=== PATIENT | male | born 1980 | race Caucasian/White ===

== ENCOUNTER 2019-04-03 21:12 | Inpatient (IN) | payer BC ==
[~2019-04-03] VITALS: Ht 182.9 cm; Wt 95.3 kg
[2019-04-03 22:30] VITALS: BP 115/70
[2019-04-03] MEDS ORDERED: CLOM50TA18 PO (22:54)
[2019-04-03] MEDS ORDERED: ELVI1TAB3 PO (22:54)
--- NOTE | 2019-04-03 23:00 | NUR ---
CIGAR BANDERLEARNING COACH NOTES Patient is a direct admit from [facility], admitted for sepsis/pancolitis. Patient is alert, oriented x 4, able to make needs known. Breathing even and unlabored, not in any distress, on room air. Patient is ambulatory with steady gait. Tele monitor in place, sinus tach 108. Peripheral IV of NS 1L started at 125mL/hr as ordered. Skin assessment done- no skin issues noted. Oriented to call light- placed within easy reach. Bed in lowest, locked position. Will continue to monitor accordingly
[2019-04-03] MEDS ORDERED: ACETAMINOPHEN 325 MG TABLET PO PRN (23:30)
[2019-04-03] MEDS ORDERED: ONDANSETRON HCL/PF 4 MG/2 ML VIAL IVP PRN (23:30)
[2019-04-03] MEDS ORDERED: MAGNESIUM HYDROXIDE 30 ML UDC PO PRN (23:30)
[2019-04-03] MEDS ORDERED: Z GUARD REMEDY 2 OZ OINT TP PRN (23:30)
[2019-04-03] MEDS ORDERED: ZOLPIDEM TARTRATE 5 MG TABLET PO PRN (23:30)
[2019-04-03] MEDS ORDERED: MAG HYDROX/AL HYDROX/SIMETH 30 ML UDC PO PRN (23:30)
--- NOTE | 2019-04-03 23:45 | NUR ---
RN NOTES currently at bedside. Informed him that as per MD order to continue home medication Genvoya but [facility] pharmacy does not supply it here. Informed him to bring the medication in the morning.
[2019-04-03] MEDS: MORPHINE SULFATE INJ 2 MG/ML DISP.SYRIN IV PRN (23:55)
--- NOTE | 2019-04-03 23:55 | NUR ---
RN NOTES Patient complaining of abdominal and flank pain, 06/12. Morphine 2mg IV given as ordered. Will continue to monitor
[2019-04-03] MEDS: IV NS 0.9% 1,000 ML IV PRN (23:58)
[2019-04-04] LABS: BASOPHILS % (AUTO) 0.1 % (0.0-2.0); EOSINOPHILS % (AUTO) 0.2 % (0.0-6.0); HEMATOCRIT 43 % (39-51); LYMPHOCYTES # (AUTO) 0.8 /CMM (0.8-4.8); LYMPHOCYTES % (AUTO) 11.5 % (20.0-44.0); MEAN CORPUSCULAR HGB CONC 35 g/dl (31.0-36.0); MEAN CORPUSCULAR VOLUME 87 fL (80-96); MONOCYTES % (AUTO) 15.7 % (2.0-12.0); NEUTROPHILS # (AUTO) 4.8 /CMM (1.8-8.9); NEUTROPHILS % (AUTO) 72.5 % (43.0-81.0); PLATELET COUNT (AUTO) 126 /CMM (150-450); RED BLOOD CELL COUNT(AUTO) 4.96 MIL/uL (4.5-6.0); WHITE BLOOD COUNT (AUTO) 6.6 K/uL (4.3-11.0)
[2019-04-04 00:15] LABS: BASOPHILS % (MANUAL) 1 % (0.0-2.0); LYMPHOCYTES % (MANUAL) 14 % (16-48); MONOCYTES % (MANUAL) 12 % (0-11.0); NEUTROPHILS % (MANUAL) 73 (42-76)
[2019-04-04 00:22] LABS: ALBUMIN 2.2 g/dL (3.4-5.0); BILIRUBIN,TOTAL 0.4 mg/dL (0.2-1.0); CALCIUM, SERUM 7.9 mg/dL (8.5-10.1); CREATININE 2.3 mg/dL (0.6-1.3); MAGNESIUM 1.9 mg/dL (1.8-2.4); PHOSPHORUS 2.6 mg/dL (2.5-4.9); POTASSIUM 3.5 mmol/L (3.5-5.1)
--- NOTE | 2019-04-04 02:20 | NUR ---
RN NOTES Stool sample collected. Sent to lab for C. Diff testing
[2019-04-04] MEDS: HYDROCODONE/APAP 5/325MG 1 EACH TABLET PO PRN (02:24)
[2019-04-04 04:00] VITALS: BP 111/60
[2019-04-04 06:37] LABS: EOSINOPHILS % (AUTO) 0.2 % (0.0-6.0); HEMATOCRIT 40 % (39-51); LYMPHOCYTES # (AUTO) 0.8 /CMM (0.8-4.8); LYMPHOCYTES % (AUTO) 12.2 % (20.0-44.0); MEAN CORPUSCULAR HGB CONC 35 g/dl (31.0-36.0); MEAN CORPUSCULAR VOLUME 87 fL (80-96); MONOCYTES # (AUTO) 1.2 /CMM (0.1-1.30); MONOCYTES % (AUTO) 18.1 % (2.0-12.0); NEUTROPHILS # (AUTO) 4.6 /CMM (1.8-8.9); NEUTROPHILS % (AUTO) 69.5 % (43.0-81.0); PLATELET COUNT (AUTO) 122 /CMM (150-450); RED BLOOD CELL COUNT(AUTO) 4.61 MIL/uL (4.5-6.0); WHITE BLOOD COUNT (AUTO) 6.6 K/uL (4.3-11.0)
--- NOTE | 2019-04-04 06:39 | NUR ---
TEL RN CLOSING NOTES Patient still sleeping in bed, easily arousable. Breathing even and unlabored. Not in any distress. Peripheral IV infusing at 125mL/hr. Tele monitor in place- sinus rhythm 89. No acute changes overnight. All needs attended and anticipated. Will endorse LILA to oncoming RN
[2019-04-04 06:41] LABS: CALCIUM, SERUM 7.6 mg/dL (8.5-10.1); MAGNESIUM 2.1 mg/dL (1.8-2.4); PHOSPHORUS 2.6 mg/dL (2.5-4.9); POTASSIUM 3.6 mmol/L (3.5-5.1)
[2019-04-04] MEDS: IV NS 0.9% 1,000 ML IV PRN ×2 (07:00→15:50)
[2019-04-04] MEDS: MORPHINE SULFATE INJ 2 MG/ML DISP.SYRIN IV PRN ×2 (07:07→21:53)
--- NOTE | 2019-04-04 07:08 | NUR ---
RN NOTES Patient complaining of abdominal and flank pain, 07/13. Morphine 2mg IV given as ordered.
[2019-04-04 07:23] LABS: THYROID STIMULATING HORMONE 0.877 uIU/mL (0.358-3.74)
[2019-04-04 07:52] LABS: BAND % (MANUAL) 2 % (0.0-5.0); LYMPHOCYTES % (MANUAL) 19 % (16-48); MONOCYTES % (MANUAL) 23 % (0-11.0); NEUTROPHILS % (MANUAL) 56 (42-76)
[2019-04-04 08:00] VITALS: BP 128/80
--- NOTE | 2019-04-04 08:00 | NUR ---
CAREGIVER ASSISTED LIVING NOTE RECEIVED PATIENT IN BED , ALERT , ORIENTED X3 , ON TELE MONITOR SR , ,ON RA NO SOB NOTED AT THIS TIME , ON IVF ORDERED LAC HL INTACT , NO S\S INFECTION NOTED , BED IN LOWEST AND LOCKED POSITION , CALL LIGHT WITHIN REACH ,WILL CONT TO MONITOR
--- NOTE | 2019-04-04 10:48 | NUR ---
SCHOOL LUNCH MANAGER NOTE ASSISTED TO BR ,ABLE TO HAVE BM, NOTED LOOSE STOOL WITH BLOOD , WILL REPOT TO MD , KEEP CLEAN DRY , ALSO PER PHARMACO PATIENT HOME MEDS NOT AVAILABLE IN HOSPITAL, RECOMMENDED TO BRING IT ,PATIENT STATED THAT FAMILY WILL BRING SOON , WILL F\U
[2019-04-04 12:00] VITALS: BP 130/82
--- NOTE | 2019-04-04 13:35 | NUR ---
CLEANING PORTER NOTE SAMIA DNP AT BEDSIDE , AWARE THAT STILL HAS BLOODY LIQUID STOOL, OK TO CONT IVF AND ADVANCE DIET TO FULL LIQUID DIET
--- NOTE | 2019-04-04 15:00 | NUR ---
ms rn note cont on ivf as ordered, not in distress
[2019-04-04 16:00] VITALS: BP 119/76
[2019-04-04] MEDS: METRONIDAZOLE 500MG/ NS 100ML 500 MG in PREMIX 1 EA IV SCH ×2 (17:03→23:41)
--- NOTE | 2019-04-04 18:46 | NUR ---
MS RN NOTE HAVING DINNER , ALL NEEDS ATTENDED ON IVF ORDERED , TOLERATED FULL LIQUID DIET WELL ,NO NAUSEA OR VOMITING NOTED , FAMILY AT BEDSIDE , WILL CONT TO MONITOR CLOSELY
[2019-04-04 20:00] VITALS: BP 118/74
--- NOTE | 2019-04-04 20:12 | NUR ---
MS RN OPENING NOTE: RECIEVED PT IN NO ACUTE DISTRESS ALERT AND ORIENTED TIMES 4. AMB BUT WEAK AND NEEDS ASSISTANCE. COMPLAINTS OF DULL PAIN IN STOMACH AREA AND GENERALIZED PAIN. WILL CONTINUE TO MONITER AND CARRY OUT PLAN OF CARE. BED IN LOW LOCKED POSITION AND CALL LIGHT WITHIN REACH.
[2019-04-04 22:00] VITALS: BP 118/74
[2019-04-05] MEDS: IV NS 0.9% 1,000 ML IV PRN (01:11)
[2019-04-05] MEDS: HYDROCODONE/APAP 5/325MG 1 EACH TABLET PO PRN ×3 (03:22→13:12)
[2019-04-05] MEDS: METRONIDAZOLE 500MG/ NS 100ML 500 MG in PREMIX 1 EA IV SCH ×3 (06:21→17:25)
[2019-04-05 06:37] LABS: BASOPHILS % (AUTO) 0.1 % (0.0-2.0); EOSINOPHILS % (AUTO) 0.8 % (0.0-6.0); HEMATOCRIT 36 % (39-51); HEMOGLOBIN 12.6 g/dL (13.5-17.5); LYMPHOCYTES # (AUTO) 1.3 /CMM (0.8-4.8); MEAN CORPUSCULAR HGB CONC 35 g/dl (31.0-36.0); MEAN CORPUSCULAR VOLUME 87 fL (80-96); MONOCYTES # (AUTO) 1.4 /CMM (0.1-1.30); MONOCYTES % (AUTO) 25.4 % (2.0-12.0); NEUTROPHILS # (AUTO) 2.7 /CMM (1.8-8.9); NEUTROPHILS % (AUTO) 49.7 % (43.0-81.0); PLATELET COUNT (AUTO) 112 /CMM (150-450); RED BLOOD CELL COUNT(AUTO) 4.15 MIL/uL (4.5-6.0); WHITE BLOOD COUNT (AUTO) 5.5 K/uL (4.3-11.0)
--- NOTE | 2019-04-05 06:53 | NUR ---
MS RN OPENING NOTE: RECIEVED PT IN NO ACUTE DISTRESS ALERT AND ORIENTED TIMES 4. AMB BUT WEAK AND NEEDS ASSISTANCE. COMPLAINTS OF DULL PAIN IN STOMACH AREA AND GENERALIZED PAIN.ENDORSE TO AM NURSE TO CONTINUE TO MONITER. BED IN LOW LOCKED POSITION AND CALL LIGHT WITHIN REACH. ALL PM MEDS GIVEN. CHANGED IV SITE TO RIGHT FOREARM [address] NS 125 RUNNING.
[2019-04-05 07:00] LABS: CALCIUM, SERUM 7.3 mg/dL (8.5-10.1); CREATININE 1.3 mg/dL (0.6-1.3); POTASSIUM 3.2 mmol/L (3.5-5.1)
--- NOTE | 2019-04-05 07:20 | NUR ---
MS/RN OPENING NOTE THE PATIENT IS RECEIVED IN BED. ALERT AND ORIENTED X4. ABLE TO MAKE NEEDS KNOWN VERBALLY. IN ROOM AIR AND DENIES SOB. DENIES PAIN AT THIS TIME. RFA G 22 PATENT AND NORMAL SALINE INFUSING AT 125ML/HR AND NO S/S INFILTRATION NOTED. BED LOW AND LOCKED. SIDE RAILS UP X2. CALL LIGHT WITHIN REACH. WILL CONTINUE TO MONITOR.
--- NOTE | 2019-04-05 07:45 | NUR ---
MS/RN NOTE THE PATIENT IS NOTED TO HAVE LOOSE STOOL THAT HAS BROWN AND BRIGHT LIGHT COLOR. PER MENTAL HEALTH ASSISTANT ENDORSEMENT MD IS AWARE. WILL CONTINUE TO MONITOR.
[2019-04-05 07:53] LABS: BAND % (MANUAL) 8 % (0.0-5.0); LYMPHOCYTES % (MANUAL) 22 % (16-48); MONOCYTES % (MANUAL) 23 % (0-11.0); NEUTROPHILS % (MANUAL) 47 (42-76)
[2019-04-05 08:00] VITALS: BP 129/74
[2019-04-05] MEDS ORDERED: GENVOYA PO SCH (09:00)
[2019-04-05] MEDS ORDERED: CLOMIPHENE CITRATE PO SCH (09:00)
[2019-04-05 10:10] LABS: *% CD 4 POS. LYMPH 34.5 % (30.8-58.5); *% CD 8 POS. LYMPH 32.7 % (12.0-35.5); *CD4/CD8 RATIO 1.06 (0.92-3.72)
[2019-04-05] MEDS: POTASSIUM CL. PREMIX PERIPHER. 50 ML IV SCH ×4 (10:32→15:09)
[2019-04-05 16:00] VITALS: BP 99/72
--- NOTE | 2019-04-05 19:11 | NUR ---
MS RN OPENING NOTES: RECEIVED PT ON ROOM AIR AND IS TOLERATING WELL. PARTNER AT BEDSIDE. PT IS A/OX4. PT STILL HAS IV R FOREARM #22G. PT IS READY FOR DISCHARGE. PT WOULD JUST LIKE TO REST. ALL PAPERWORK AND BELONGINGS HAVE BEEN TAKEN CARE OF AND GIVEN TO PT. BED KEPT IN LOW, LOCKED POSITION, AND SIDE RAILS X 2UP. WILL CONTINUE TO MONITOR PT.
[2019-04-06 07:07] LABS: *BASOS 0 % (Not Estab.); *COMMENTS Note: (.); *EOS 1 % (Not Estab.); *EOS, ABSOLUTE 0.1 x10E3/uL (0.0-0.4); *HCT 38.4 % (37.5-51.0); *HGB 12.8 g/dL (13.0-17.7); *LYMPHOCYTES 25 % (Not Estab.); *LYMPHS, ABSOLUTE 1.5 x10E3/uL (0.7-3.1); *MCH 29.4 pg (26.6-33.0); *MCHC 33.3 g/dL (31.5-35.7); *MCV 88 fL (79-97); *MONOCYTES 24 % (Not Estab.); *MONOS, ABSOLUTE 1.4 x10E3/uL (0.1-0.9); *NEUTROPHILS 44 % (Not Estab.); *NEUTROPHILS, ABSOLUTE 2.8 x10E3/uL (1.4-7.0); *PLT 146 x10E3/uL (150-450); *RBC 4.36 x10E6/uL (4.14-5.80)
[2019-04-06 15:08] LABS: *% CD 4 POS. LYMPH 43.9 % (30.8-58.5); *% CD 8 POS. LYMPH 33.1 % (12.0-35.5); *ABSOLUTE CD 4 HELPER 659 /uL (359-1519); *ABSOLUTE CD 8 SUPPRESSOR 497 /uL (109-897); *CD4/CD8 RATIO 1.33 (0.92-3.72)
== END 2019-04-05 18:45 | disposition home or self-care (01) | DRG 871 ==
LOC: TELE1 22:20 → MEDSG1 04-04 13:50
PROVIDERS: ADMIT Student in an Organized Health Care Education/Training Program; ATTEND Nurse Practitioner Acute Care
DX: A41.9 Sepsis, unspecified organism (principal); N17.0 Acute kidney failure with tubular necrosis; E87.1 Hypo-osmolality and hyponatremia; K51.00 Ulcerative (chronic) pancolitis without complications; K92.2 Gastrointestinal hemorrhage, unspecified; K44.9 Diaphragmatic hernia without obstruction or gangrene; K76.0 Fatty (change of) liver, not elsewhere classified; E87.6 Hypokalemia
CPT/HCPCS: 36415; 80048-TC; 80053-TC; 80061-TC; 83605-TC; 83735-TC; 84100-TC; 84443-TC; 85025-TC; 86360; 87081-TC; 87536; A4216; G0378; J2270; J3480; J3490; J7030